=== PATIENT | female | born 1980 | race Caucasian/White ===

== ENCOUNTER → 2017-12-04 | Outpatient (CLI) | payer OTHER ==
--- NOTE | 2017-12-04 13:41 | RAD ---
Left Lower Extremity Venous Doppler Ultrasound Indication: Left calf pain and swelling. Comparison: None. Procedure: Color Doppler, spectral Doppler, and grayscale images with and without compression are obtained in the area of the common femoral vein, superficial femoral vein - femoral vein junction, main femoral vein (superficial femoral vein) and popliteal vein. Veins of the proximal calf are also imaged. Findings: There is normal duplex flow, color flow and compressibility of all visualized vein segments. There is no evidence of deep venous thrombosis. There is a fluid collection which runs from the medial left posterior knee to the mid medial calf. The fluid appears complex and demonstrates internal septations. Impression: 1. No evidence of left lower extremity deep venous thrombosis. 2. There is a complex fluid collection involving the left lower leg. This nonspecific, could represent organizing hematoma or possibly ruptured complex Lam's cyst. Electronically signed by: Jesse Sullivan MD (12/04/2017 1:38 PM) [place] [id number]
== END | disposition home or self-care (01) ==
LOC: US 09:00
PROVIDERS: ATTEND Orthopaedic Surgery
DX: M25.562 Pain in left knee (principal); M79.89 Other specified soft tissue disorders
CPT/HCPCS: 93971